=== PATIENT | male | born 1965 | race African-American/Black ===

== ENCOUNTER 2018-11-12 00:45 | Emergency (ER) | payer MEDICAID ==
--- NOTE | 2018-11-12 01:26 | ED Physician Chart ---
ED Chief Complaint/HPI - Patient Information Date Seen:: 11/12/18 Time Seen:: 01:18 Chief Complaint:: Right fifth finger swelling and pain History of Present Illness:: 53 yo male with history of HTN, had right 5th finger pain and swelling for 4 days. Pt did not recall any direct injury to the finger. Pt noticed a red, painful, long, thin band along the medial side of the right elbow ending into a painful, red nodule in the right arm. Pt denied any fever. Allergies:: Allergies Allergy/AdvReac Type Severity Reaction Status Date / Time No Known Allergies Allergy Verified 11/12/18 01:14 Vitals:: Vital Signs - 8 hr 11/12/18 01:14 Temp 97.9 F HR 51 RR 18 BP 170/107 O2 Sat % 93 ED Review of Systems - Review of Systems General/Constitutional: No fever, No chills Skin: Skin lesions Head: No headache Eyes: No pain ENT: No nasal drainage Neck: No neck pain Cardio Vascular: No chest pain Pulmonary: No SOB GI: No nausea, No vomiting Musculoskeletal: No bone or joint pain Neurological: No focal symptoms ED Past Medical History - Past Medical History Past Medical History: HTN, Other (Obesity) Social History: Non Smoker, No Alcohol, No Drug Use Family Medical History - Family Member Mother History Unknown: Yes ED Physical Exam - Physical Examination General/Constitutional: Awake, Alert Head: Atraumatic Eyes: PERRL, EOMI ENMT: Nasal exam nl Neck: No nuchal rigidity Respiratory: Clear to Auscultation, No Wheeze/Rhonchi/Rales Cardio Vascular: RRR, No murmur, gallop, rubs, NL S1 S2 GI: No tenderness/rebounding/guarding Other Extremities comments:: Right distal 5th finger pain, swelling, erythema around the nail. There were yellow areas adjacent to the nail representing pus formation. A red, painful, long, thin band along the medial side of the right elbow ending (10 cm in length) into a painful, red nodule in the right arm. Neuro/Psych: No focal deficits ED Assessment - Assessment General Assessment: Acute paronychia of right fifth finger Right upper extremity lymphangitis Hypertension Assessment/Comments:: CBC, CMP (pt refused) Incision and drainage Wound culture Vancomycin IV - Procedures Procedures:: Incision and drainage, used a scalp to cut a small incision on the radial proximal side of the finger nail, expressed copious amount of pus, further suctioned by a 22 gauge needle, irrigated with hydrogen peroxide and betadine. Applied bacitracin. Pt tolerated the procedure. Informed Consent: Procedure/risk/benefits explained by MD: Yes ED Septic Shock - . Is Septic Shock (SBP<90, OR Lactate>4 mmol\L) present?: No - <6hrs of presentation: Vital Signs: Vital Signs - 8 hr 11/12/18 01:14 Temp 97.9 F HR 51 RR 18 BP 170/107 O2 Sat % 93 ED Reassessment (Disposition) - Reassessment Reassessment Condition:: Improved - Aftercare/Follow up Instructions Notes:: D/c home F/u PCP Return to ER if symptoms worsen Medication Prescribed:: Augmentin 875-125mg q12h x 7 days - Patient Disposition Discharge/Transfer:: Home
[2018-11-12] MEDS ORDERED: Bacitracin pkt 1 gm Pkt TP ONE (02:22)
[2018-11-12] MEDS ORDERED: Bacitracin pkt 1 gm Pkt TP STA (02:23)
== END 2018-11-12 03:35 | disposition home or self-care (01) ==
LOC: ER 00:45
DX: L03.011 Cellulitis of right finger (principal); I10 Essential (primary) hypertension
CPT/HCPCS: 99283; 96365; 10060; 87070; J3370; Z7502